=== PATIENT | female | born 1955 | race Caucasian/White ===

== ENCOUNTER → 2017-12-05 | Outpatient (CLI) | payer OTHER | LOC: FIMAGING 12:20 | PROVIDERS: ATTEND Family Medicine | DX: Z12.31 Encounter for screening mammogram for malignant neoplasm of breast (principal); Z80.3 Family history of malignant neoplasm of breast ==

== ENCOUNTER 2017-12-06 06:45 | Emergency (ER) | payer OTHER ==
[2017-12-06 06:51] VITALS: BP 168/99
--- NOTE | 2017-12-06 07:10 | EDPHY ---
HPI/HX/ROS/PE/MDM Narrative: CHIEF COMPLAINT: Left eye discharge HPI: This patient is a 62 y/o female complaining of bleeding from her left eye. She woke up this morning with loss of vision in her left eye, and immediately had a blood-tinged discharge come from her eye. Her vision returned after this. She has not noticed any purulence or other recent discharge. For the past several weeks, she has noticed a "filmy" substance over her eye causing blurred vision. During this time she has also noted high blood pressure around 151/90 and had three major headaches. Currently, she does not have any headache. She denies epistaxis. No known history of hypertension. No fever, chest pain, shortness of breath, dizziness, weakness, or other associated symptoms. REVIEW OF SYSTEMS: Aside from elements discussed in the HPI, a comprehensive 10-point review of systems was reviewed and is negative. PMH: Hyperlipidemia. Anxiety. 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 Friend at bedside. Lives in [place]. PHYSICAL EXAM: General:Patient is alert, in no acute distress. ENT: Small subconjunctival hemorrhage to medial aspect of left eye. No active bleeding. Anterior chamber clear. No hyphema. PERRL. No signs of trauma. No epistaxis. EOMI without pain. Lids normal. Neuro: Oriented x3. Normal motor function. Normal sensory function. ED Course: 62 y/o female presents with bleeding from her left eye following three week history of blurred vision due to a "filmy" substance over her eye. Exam reveals small subconjunctival hemorrhage to medial aspect of left eye. The patient's blood pressure here in the emergency department is 168/99. No other acute symptoms. The patient reports that she already has an appointment with an program checker. I reassured her that her symptoms today appear benign and encouraged her to follow up with her program checker as scheduled. MDM: This patient presents with small subconjunctival hemorrhage. I see no signs of active bleeding or other eye process. Vision is normal. BP is slightly elevated but not in danger zone and patient is anxious - we discussed the fact that she would need to see her PCP to address BP as it is generally not good to start antihypertensives in the ED without close PCP follow-up. I see no evidence of CVA or SAH. General Initial Vital Signs: Initial Vital Signs Temperature (C) 36.7 C 12/06/17 06:46 Heart Rate 77 12/06/17 06:46 Respiratory Rate 18 12/06/17 06:46 Blood Pressure 168/99 H 12/06/17 06:46 O2 Sat (%) 97 12/06/17 06:46 O2 Delivery Mode Room Air Allergies/Adverse Reactions: No Known Allergies Allergy (Unverified 01/15/16 23:05) Home Medications: Medication Instructions Recorded NK [No Known Home Meds] 12/06/17 Departure - Departure Disposition: Home, Routine, Self-Care Clinical Impression: Subconjunctival hemorrhage of left eye Condition: Good Instructions: Subconjunctival Hemorrhage (ED) Additional Instructions: 1. Apply cold compresses to the eye. 2. Follow up with ophthalmology as scheduled. 3. Return to the emergency department for changes in or loss of vision or other worsening of condition or further concerns. Referrals: Julissa Mendez MD [Primary Care Provider] - As per Instructions Report Scribed for: Casey Dumont Report Scribed by: Kristin Mayorga Date of Report: 12/06/17 Time of Report: 07:14 Physician Review and Approval Statement: Portions of this note were transcribed by an ED scribe. I personally performed the history, physical exam, and medical decision making; and confirm the accuracy of the information in the transcribed note.
== END 2017-12-06 07:21 | disposition home or self-care (01) ==
DX: H11.32 Conjunctival hemorrhage, left eye (principal)

== ENCOUNTER 2018-10-23 07:41 | Day surgery (SDC) | payer OTHER ==
--- NOTE | 2018-10-23 06:59 | PDGENHP ---
History and Physical - Chief Complaint Right inguinal hernia - History of Present Illness 63yo F, has had R inguinal pain. Originally saw me in the office in May. Since then, has had worsening pain in that side, especially worse with lifting. Denies any obstructive changes History Information - Allergies/Home Medication List Allergies/Adverse Reactions: No Known Allergies Allergy (Verified 10/11/18 16:32) Home Medications: Aspirin 10/11/18 [Last Taken Unknown] Herbals/Supplements -Info Only 10/11/18 [Last Taken Unknown] Pravastatin Sodium 10/11/18 [Last Taken Unknown] I have personally reviewed and updated: medical history, social history, surgical history Past Medical History: HLD, scoliosis - Social History Smoking Status: Never smoked Review of Systems Review of Systems: ROS: 10pt was reviewed & negative except for what was stated in HPI & below Physical Exam Physical Exam: Constitutional: no apparent distress, appears nourished, not in pain Eyes: PERRL, anicteric sclera, EOMI Ears, Nose, Mouth, Throat: moist mucous membranes, hearing normal, ears appear normal, no oral mucosal ulcers Cardiovascular: regular rate and rhythym, no murmur, rub, or gallop, No edema Respiratory: no respiratory distress, no rales or rhonchi, clear to auscultation Gastrointestinal: normoactive bowel sounds, soft, non-tender abdomen, no palpable masses, other (tender, reducible inguinal hernia ) Genitourinary: no bladder fullness, no bladder tenderness Skin: warm, normal color, no rashes or abrasions, no fluctuance, no induration, No mottled Musculoskeletal: full muscle strength, no muscle tenderness, normal joint ROM, no joint effusions Psychiatric: interacting appropriately, not anxious, not encephalopathic, thought process linear Lymph, Heme, Immunologic: no cervical LAD, no supraclavicular LAD Assessment & Plan Assessment: 63yo F c reducible inguinal hernia Plan: to OR for robotic assisted repair
[2018-10-23] MEDS ORDERED: ceFAZolin 2 GM/DEXTROSE 100 ML IV ONE (07:48)
[2018-10-23] MEDS ORDERED: LR 1,000 ML IV ONE (07:49)
[2018-10-23] MEDS ORDERED: MIDAZOLAM 2 MG/2 ML VIAL IVP ONE (08:23)
[2018-10-23] MEDS: LIDOCAINE 1% 2 ML INJ ID PRN ×2 (08:35→08:48)
[2018-10-23] MEDS ORDERED: BUPIVACAINE 0.25% 30 ML SDV ONE (09:16)
[2018-10-23] MEDS ORDERED: PROPOFOL 200 MG/20 ML VIAL ONE (10:13)
[2018-10-23] MEDS ORDERED: fentaNYL 100 MCG/2 ML INJ ONE ×3 (10:13→11:44)
--- NOTE | 2018-10-23 10:14 | PDANEPAE ---
ANE Past Medical History - Cardiovascular History Hx Hypertension: No Hx Arrhythmias: No Hx Chest Pain: No Hx Coronary Artery / Peripheral Vascular Disease: No Hx CHF / Valvular Disease: No Hx Palpitations: No - Pulmonary History Hx COPD: No Hx Asthma/Reactive Airway Disease: No Hx Recent Upper Respiratory Infection: No Hx Oxygen in Use at Home: No Hx Sleep Apnea: No Sleep Apnea Screening Result - Last Documented: Negative - Neurologic History Hx Cerebrovascular Accident: No Hx Seizures: No Hx Dementia: No - Endocrine History Hx Diabetes: No - Renal History Hx Renal Disorders: No - Liver History Hx Hepatic Disorders: No - Neurological & Psychiatric Hx Hx Neurological and Psychiatric Disorders: No - Cancer History Hx Cancer: No - Congenital Disorder History Hx Congenital Disorders: No - GI History Hx Gastrointestinal Disorders: No - Other Health History Other Health History: tinnitus. Hx PEARCE - Chronic Pain History Chronic Pain: No - Surgical History Prior Surgeries: hysterectomy 20yrs ago. tendon repair. knee scope ANE Review of Systems Review of Systems: - Exercise capacity METS (RN): 4 METS ANE Patient History - Allergies Allergies/Adverse Reactions: No Known Allergies Allergy (Verified 10/11/18 16:32) - Home Medications Home Medications: Aspirin 10/11/18 [Last Taken 10/14/18] Herbals/Supplements -Info Only 10/11/18 [Last Taken 1 Day Ago ~10/22/18] Pravastatin Sodium 10/11/18 [Last Taken 1 Day Ago ~10/22/18] - NPO status NPO Since - Liquids (Date): 10/22/18 NPO Since - Liquids (Time): 20:00 NPO Since - Solids (Date): 10/22/18 NPO Since - Solids (Time): 19:00 - Smoking Hx Smoking Status: Never smoked - Family Anes Hx Family Hx Anesthesia Complications: none ANE Labs/Vital Signs - Vital Signs Blood Pressure: 158/96 Heart Rate: 70 Respiratory Rate: 18 O2 Sat (%): 97 Height: 149.86 cm Weight: 52.163 kg ANE Physical Exam - Airway Neck exam: FROM Mallampati Score: Class 2 Mouth exam: normal dental/mouth exam - Pulmonary Pulmonary: no rales or rhonchi, clear to auscultation - Cardiovascular Cardiovascular: regular rate and rhythym - ASA Status ASA Status: II ANE Anesthesia Plan Anesthesia Plan: general endotracheal anesthesia
[2018-10-23] MEDS ORDERED: LIDOCAINE 2% 5 ML SDV ONE (10:16)
[2018-10-23] MEDS ORDERED: ROCURONIUM 50 MG/5 ML VIAL ONE (10:16)
[2018-10-23] MEDS ORDERED: ESMOLOL HCL 100 MG/10 ML VIAL IV ONE (10:42)
[2018-10-23] MEDS ORDERED: DEXAMETHASONE 4 MG/ML VIAL ONE (10:42)
[2018-10-23] MEDS ORDERED: KETOROLAC 30 MG/1 ML SDV ONE (11:13)
[2018-10-23] MEDS ORDERED: ONDANSETRON 4 MG/2 ML VIAL ONE (11:13)
[2018-10-23] MEDS ORDERED: SUGAMMADEX SODIUM 200 MG/2 ML VIAL IVP ONE (11:13)
[2018-10-23] MEDS ORDERED: DIAZEPAM 5 MG/ML 1 ML SYR IVP PRN (11:15)
[2018-10-23] MEDS ORDERED: METOCLOPRAMIDE 10 MG/2 ML VIAL IVP PRN (11:15)
[2018-10-23] MEDS ORDERED: PROMETHAZINE HCL 25 MG/ML INJ IVP PRN (11:15)
[2018-10-23] MEDS ORDERED: NALOXONE HCL 0.4 MG/ML INJ IVP PRN (11:15)
[2018-10-23] MEDS ORDERED: ONDANSETRON 4 MG/2 ML VIAL IVP PRN (11:15)
[2018-10-23] MEDS ORDERED: ALBUTEROL 3 ML DEYVIAL IH PRN (11:15)
[2018-10-23] MEDS ORDERED: MEPERIDINE 25 MG/0.5 ML AMP IVP PRN (11:15)
[2018-10-23] MEDS ORDERED: HYDROmorphONE/DILAUDID 2 MG/ML INJ IVP PRN (11:15)
[2018-10-23] MEDS ORDERED: oxyCODONE IR 5 MG TAB PO PRN (11:15)
[2018-10-23] MEDS ORDERED: LR 500 ML IV PRN (11:15)
--- NOTE | 2018-10-23 11:20 | POSTOPPROG ---
Post Op Note Date of Operation: 10/23/18 Surgeon: Dustin Tafoya Radiology Interventional Physician: BETTY Sanford Anesthesiologist: Dipti Anesthesia: GET(General Endotracheal) Pre-op Diagnosis: RIH Post-op Diagnosis: Indirect RIH Procedure: Robotic assisted RIH c mesh Findings: moderate indirect defect Inf/Abcess present in the surg proc area at time of surgery?: No EBL: Minimal
[2018-10-23] MEDS: fentaNYL 100 MCG/2 ML INJ IVP PRN ×2 (11:45→11:52)
--- NOTE | 2018-10-23 11:56 | POSTANESTH ---
Post Anesthetic Evaluation Cardiovascular Status: Normal, Stable Respiratory Status: Normal, Stable Level of Consciousness/Mental Status: Can Participate in Eval Pain Control: Adequate, Prn Tx Ordered Nausea/Vomiting Control: Adequate, Prn Tx Ordered Complications Possibly Related to Anesthesia: None Noted
[2018-10-23] MEDS ORDERED: oxyCODONE IR 5 MG TAB ONE (12:49)
[2018-10-23 13:37] VITALS: BP 139/98
== END 2018-10-23 13:41 | disposition home or self-care (01) ==
LOC: FSGY 07:41
PROVIDERS: ATTEND Surgery
PROC: 8E0W8CZ Robotic Assisted Procedure of Trunk Region, Via Natural or Artificial Opening Endoscopic (ICD-10-PCS; principal; 2018-10-23 09:30)
PROC: 0YU54JZ Supplement Right Inguinal Region with Synthetic Substitute, Percutaneous Endoscopic Approach (ICD-10-PCS; principal; 2018-10-23 09:30)
DX: K40.90 Unilateral inguinal hernia, without obstruction or gangrene, not specified as recurrent (principal); E78.5 Hyperlipidemia, unspecified; H93.19 Tinnitus, unspecified ear; Z79.82 Long term (current) use of aspirin; Z90.710 Acquired absence of both cervix and uterus
CPT/HCPCS: C1781; J0690; J1100; J1885; J2250; J2405; J2704; J3010